=== PATIENT | male | born 1995 | race Two or more races ===

== ENCOUNTER 2017-10-25 17:42 | Emergency (ER) | payer MEDICAID, OTHER ==
[~2017-10-25] VITALS: Ht 172.7 cm; Wt 61.2 kg
[2017-10-25 17:49] VITALS: BP 123/69
[2017-10-25] MEDS ORDERED: cefTRIAXone SOD 1,000 MG VL IM ONE (22:00)
== END 2017-10-25 22:37 | disposition home or self-care (01) ==
LOC: ER 17:46
DX: J02.0 Streptococcal pharyngitis (principal)
CPT/HCPCS: 96372; 99283; J0696

== ENCOUNTER 2021-07-28 14:39 | Inpatient (IN) | payer MEDICAID ==
[~2021-07-28] VITALS: Ht 172.7 cm; Wt 72.1 kg
[2021-07-28] MEDS ORDERED: DEXTROSE (50%) 50ML SYRG IV PRN (15:15)
[2021-07-28] MEDS ORDERED: InsuLIN R (HUMAN) 100 UNITS in SODIUM CHL 0.9% 99 ML IV SCH (15:15)
[2021-07-28] MEDS ORDERED: SODIUM CHLORIDE 0.9% 1,000 ML IV ONE ×2 (15:15)
[2021-07-28 16:17] LABS: Basophils # (auto) 0 10 ^3/uL (0-0.2); Eosinophils # (auto) 0 10 ^3/uL (0-0.8); Mean Corpuscular Hemoglobin 30.4 pg (28.0-32.0); Mean Corpuscular Hgb Conc. 33.5 g/dL (32.0-36.0); Monocytes # (auto) 0.6 10 ^3/uL (0-1.3); Neutrophils # (auto) 5.6 10 ^3/uL (1.6-8.6); Nucleated Red Blood Cells % 0.1 %
[2021-07-28 16:18] LABS: Basophils % (auto) 0.2 % (0.0-2.0); Eosinophils % (auto) 0.3 % (0.0-7.0); Hematocrit 53.9 % (41.0-53.0); Lymphocytes # (auto) 1.3 10 ^3/uL (0.4-5.4); Lymphocytes % (auto) 16.9 % (10.0-50.0); Mean Corpuscular Volume 90.7 fL (80.0-100.0); Monocytes % (auto) 7.8 % (0.0-12.0); Neutrophils % (auto) 74.8 % (37.0-80.0); Red Blood Cells 5.94 10^6/uL (4.5-5.90); Red Cell Distribution Width 13.3 % (11.8-14.3); White Blood Cell 7.5 10^3/uL (4.4-10.8)
[2021-07-28 16:26] LABS: Albumin 3.8 g/dL (3.4-5.0); Calcium 9.2 mg/dL (8.5-10.1); INR 0.96 (0.9-1.15); Partial Thromboplastin Time 28.5 sec (23.6-33.0); Potassium 4.2 mmol/L (3.5-5.1)
[2021-07-28 16:30] LABS: BUN/Creatinine Ratio 7.9; Total Protein 8.5 g/dL (6.4-8.2)
[2021-07-28 17:12] LABS: Urine Bacteria FEW /hpf (None Seen); Urine Blood 1+ /uL (Negative); Urine Mucus FEW (None Seen); Urine Specific Gravity 1.031 (1.001-1.035); Urine WBC 2 /hpf (0 - 3)
[2021-07-28] MEDS: ACCU-CHEK COMFORT CURVE STRIP VI SCH ×5 (17:23→23:24)
[2021-07-28] MEDS ORDERED: D5W/SOD CHL 0.45%/KCL 20MEQ 1,000 ML IV SCH (18:45)
[2021-07-28] MEDS ORDERED: HYDROcodone-ACET 5/325MG TAB PO PRN (19:15)
[2021-07-28] MEDS ORDERED: ACETAMINOPHEN 500 MG TAB PO PRN (19:15)
[2021-07-28] MEDS ORDERED: ONDANSETRON HCL 4 MG/2 ML VIAL IV PRN (19:15)
[2021-07-28] MEDS ORDERED: NITROGLYCERIN 0.4 MG SL TAB SL PRN (19:15)
[2021-07-28] MEDS ORDERED: MORPHINE SULFATE INJECTION 2 MG/ML SYRG IV PRN ×2 (19:15)
[2021-07-28] MEDS ORDERED: INSULIN LANTUS (GLARGINE) 1 /0.01ml (100units/ml) SC SCH ×2 (19:45→20:00)
[2021-07-29] MEDS: ACCU-CHEK COMFORT CURVE STRIP VI SCH ×5 (00:10→13:04)
[2021-07-29 00:15] LABS: Potassium 3.5 mmol/L (3.5-5.1)
[2021-07-29] MEDS ORDERED: DEXTROSE (50%) 50ML SYRG IV PRN (01:45)
[2021-07-29] MEDS: InsuLIN REG 1unit/0.01ml Soln (100units/ml) SC SCH ×3 (03:51→13:30)
[2021-07-29 04:25] VITALS: BP 102/59
[2021-07-29] MEDS ORDERED: INSU100I26 SC (05:43)
[2021-07-29] MEDS ORDERED: INSULIN LANTUS (GLARGINE) 1 /0.01ml (100units/ml) SC ONE (06:15)
[2021-07-29 08:25] VITALS: BP 126/61
[2021-07-29 09:00] VITALS: BP 126/61
[2021-07-29 09:20] LABS: Basophils # (auto) 0 10 ^3/uL (0-0.2); Basophils % (auto) 0.7 % (0.0-2.0); Eosinophils # (auto) 0.2 10 ^3/uL (0-0.8); Eosinophils % (auto) 3.2 % (0.0-7.0); Hematocrit 40.9 % (41.0-53.0); Hemoglobin 13.9 g/dL (13.5-17.5); Lymphocytes # (auto) 1.8 10 ^3/uL (0.4-5.4); Lymphocytes % (auto) 32.7 % (10.0-50.0); Mean Corpuscular Hemoglobin 30.3 pg (28.0-32.0); Monocytes # (auto) 0.6 10 ^3/uL (0-1.3); Monocytes % (auto) 10.9 % (0.0-12.0); Neutrophils # (auto) 2.8 10 ^3/uL (1.6-8.6); Neutrophils % (auto) 52.5 % (37.0-80.0); Nucleated Red Blood Cells % 0.6 %; Red Blood Cells 4.59 10^6/uL (4.5-5.90); White Blood Cell 5.4 10^3/uL (4.4-10.8)
[2021-07-29 09:41] LABS: Albumin 2.7 g/dL (3.4-5.0); Magnesium 2.4 mg/dL (1.6-2.6); Potassium 3.7 mmol/L (3.5-5.1)
[2021-07-29 09:54] LABS: Bilirubin, Total 0.9 mg/dL (0.2-1.0); Phosphorus 2.3 mg/dL (2.5-4.90); Total Protein 5.9 g/dL (6.4-8.2)
[2021-07-29 13:00] VITALS: BP 116/56
[2021-07-29 14:15] LABS: BUN/Creatinine Ratio 7.1
[2021-07-29 14:47] LABS: BUN/Creatinine Ratio 10.4
[2021-07-29 15:27] VITALS: BP 116/56
== END 2021-07-29 17:46 | disposition home or self-care (01) | DRG 420 ==
LOC: ER 14:39 → TELE 19:10 → TELE-CENTR 07-29 03:28 → CENTRAL 07-29 06:20
PROVIDERS: ADMIT Nurse Practitioner Acute Care; ATTEND Internal Medicine
DX: E11.10 Type 2 diabetes mellitus with ketoacidosis without coma (principal); N17.9 Acute kidney failure, unspecified; E86.0 Dehydration; Z20.822 Contact with and (suspected) exposure to COVID-19
CPT/HCPCS: 36415; 36600; 71045; 80048; 80053; 81001; 82010; 82805; 82962; 83036; 83735; 84100; 85025; 85610; 85730; 87426; 96361; 96365; 96372; G0378; J1815

== ENCOUNTER 2021-11-20 19:36 | Inpatient (IN) | payer MEDICAID ==
[~2021-11-20] VITALS: Ht 172.7 cm; Wt 86.0 kg
[~2021-11-20 19:36] MED LIST: INSU100I26 SC
[2021-11-20] MEDS ORDERED: LACTATED RINGER'S 2,000 ML IV ONE (20:00)
[2021-11-20 20:35] LABS: Basophils # (auto) 0 10 ^3/uL (0-0.2); Basophils % (auto) 0.2 % (0.0-2.0); Eosinophils # (auto) 0 10 ^3/uL (0-0.8); Hematocrit 50.5 % (41.0-53.0); Hemoglobin 16.8 g/dL (13.5-17.5); Lymphocytes # (auto) 1.1 10 ^3/uL (0.4-5.4); Mean Corpuscular Hemoglobin 30.4 pg (28.0-32.0); Mean Corpuscular Hgb Conc. 33.3 g/dL (32.0-36.0); Mean Corpuscular Volume 91.5 fL (80.0-100.0); Monocytes # (auto) 0.7 10 ^3/uL (0-1.3); Neutrophils # (auto) 6.9 10 ^3/uL (1.6-8.6); Neutrophils % (auto) 78.8 % (37.0-80.0); Nucleated Red Blood Cells % 0.1 %; Red Blood Cells 5.53 10^6/uL (4.5-5.90); Red Cell Distribution Width 13.2 % (11.8-14.3); White Blood Cell 8.8 10^3/uL (4.4-10.8)
[2021-11-20 20:55] LABS: Albumin 3.8 g/dL (3.4-5.0); Calcium 9.4 mg/dL (8.5-10.1); Magnesium 2.2 mg/dL (1.6-2.6); Potassium 4.6 mmol/L (3.5-5.1)
[2021-11-20 20:58] LABS: Lactic Acid w/Reflex 2.4 mmol/L (0.4-2.0)
[2021-11-20 21:05] LABS: BUN/Creatinine Ratio 8.6; Bilirubin, Total 0.7 mg/dL (0.2-1.0); Total Protein 8.7 g/dL (6.4-8.2)
[2021-11-20] MEDS ORDERED: InsuLIN REG 1unit/0.01ml Soln (100units/ml) IV ONE (21:30)
[2021-11-21] MEDS ORDERED: ACETAMINOPHEN 325 MG TAB PO ONE
[2021-11-21 02:41] LABS: Albumin 2.9 g/dL (3.4-5.0); BUN/Creatinine Ratio 10.3; Calcium 8.3 mg/dL (8.5-10.1)
[2021-11-21 02:45] LABS: Bilirubin, Total 0.5 mg/dL (0.2-1.0); Total Protein 6.5 g/dL (6.4-8.2)
[2021-11-21] MEDS ORDERED: DEXTROSE (50%) 50ML SYRG IV PRN ×2 (05:30→10:30)
[2021-11-21] MEDS ORDERED: INSULIN LANTUS (GLARGINE) 1 /0.01ml (100units/ml) SC ONE ×2 (05:30→10:30)
[2021-11-21] MEDS ORDERED: InsuLIN REG 1unit/0.01ml Soln (100units/ml) ONE (05:31)
[2021-11-21] MEDS: InsuLIN R (HUMAN) 100 UNITS in SODIUM CHL 0.9% 99 ML IV SCH ×4 (05:38→10:18)
[2021-11-21 05:40] LABS: Albumin 2.7 g/dL (3.4-5.0); BUN/Creatinine Ratio 9.4; Calcium 7.5 mg/dL (8.5-10.1); Potassium 4.4 mmol/L (3.5-5.1)
[2021-11-21 05:43] LABS: Bilirubin, Total 0.5 mg/dL (0.2-1.0); Total Protein 6.2 g/dL (6.4-8.2)
[2021-11-21 05:45] LABS: Magnesium 1.7 mg/dL (1.6-2.6); Phosphorus 3.5 mg/dL (2.5-4.90)
[2021-11-21 06:08] LABS: Urine Bacteria NONE SEEN /hpf (None Seen); Urine Blood 2+ /uL (Negative); Urine Hyaline Cast MANY /lpf (0 - 2); Urine Mucus FEW (None Seen); Urine Specific Gravity 1.028 (1.001-1.035); Urine WBC 2 /hpf (0 - 3)
[2021-11-21] MEDS: ACCU-CHEK COMFORT CURVE STRIP VI SCH ×7 (06:24→20:17)
[2021-11-21 08:04] LABS: Basophils # (auto) 0 10 ^3/uL (0-0.2); Basophils % (auto) 0.2 % (0.0-2.0); Eosinophils # (auto) 0 10 ^3/uL (0-0.8); Eosinophils % (auto) 0.2 % (0.0-7.0); Hematocrit 42.1 % (41.0-53.0); Lymphocytes # (auto) 1.2 10 ^3/uL (0.4-5.4); Lymphocytes % (auto) 16.4 % (10.0-50.0); Mean Corpuscular Hemoglobin 30.8 pg (28.0-32.0); Mean Corpuscular Hgb Conc. 33.2 g/dL (32.0-36.0); Mean Corpuscular Volume 92.7 fL (80.0-100.0); Monocytes # (auto) 0.8 10 ^3/uL (0-1.3); Monocytes % (auto) 11.1 % (0.0-12.0); Neutrophils # (auto) 5.4 10 ^3/uL (1.6-8.6); Neutrophils % (auto) 72.1 % (37.0-80.0); Nucleated Red Blood Cells % 0.2 %; Red Blood Cells 4.55 10^6/uL (4.5-5.90); Red Cell Distribution Width 13.3 % (11.8-14.3); White Blood Cell 7.5 10^3/uL (4.4-10.8)
[2021-11-21] MEDS ORDERED: SODIUM CHLORIDE 0.9% 1,000 ML IV SCH ×2 (09:30→11:30)
[2021-11-21] MEDS ORDERED: HYDROcodone-ACET 5/325MG TAB PO PRN (10:15)
[2021-11-21] MEDS ORDERED: NITROGLYCERIN 0.4 MG SL TAB SL PRN (10:15)
[2021-11-21] MEDS ORDERED: DOCUSATE SOD 100 MG CAP PO PRN (10:15)
[2021-11-21] MEDS ORDERED: ONDANSETRON HCL 4 MG/2 ML VIAL IV PRN (10:15)
[2021-11-21] MEDS ORDERED: ACETAMINOPHEN 325 MG TAB PO PRN ×2 (10:15→17:15)
[2021-11-21] MEDS: SODIUM CHLORIDE 0.9% 1,000 ML IV SCH ×3 (10:15→20:17)
[2021-11-21] MEDS ORDERED: MORPHINE SULFATE INJ 2 MG/ml SYRG IV PRN ×2 (10:15)
[2021-11-21 11:23] LABS: Albumin 2.8 g/dL (3.4-5.0); BUN/Creatinine Ratio 7.1; Calcium 7.8 mg/dL (8.5-10.1); Potassium 3.9 mmol/L (3.5-5.1)
[2021-11-21 11:26] LABS: Bilirubin, Total 0.5 mg/dL (0.2-1.0); Total Protein 6.6 g/dL (6.4-8.2)
[2021-11-21 12:20] VITALS: BP 133/79
[2021-11-21] MEDS: InsuLIN REG 1unit/0.01ml Soln (100units/ml) SC SCH ×3 (12:43→20:16)
[2021-11-21] MEDS ORDERED: INSU1INJ19 SC (13:02)
[2021-11-21] MEDS ORDERED: PHEN1CAP74 PO (13:02)
[2021-11-21] MEDS ORDERED: AZITHROMYCIN 500MG/ 250ML 250 ML IV SCH (14:30)
[2021-11-21] MEDS ORDERED: PROMETHAZINE W/CODEINE 5 ML ORAL SYRUP PO PRN (14:30)
[2021-11-21 16:45] VITALS: BP 132/74
[2021-11-21 19:05] LABS: BUN/Creatinine Ratio 5.2; Calcium 8.2 mg/dL (8.5-10.1); Potassium 3.3 mmol/L (3.5-5.1)
[2021-11-21] MEDS: OSELTAMIVIR 75 MG CAP PO SCH (21:44)
[2021-11-21] MEDS: ASCORBIC ACID 500 MG TAB PO SCH (21:44)
[2021-11-21 22:00] VITALS: BP 134/73
[2021-11-21] MEDS ORDERED: INSULIN LANTUS (GLARGINE) 1 /0.01ml (100units/ml) SC SCH (22:00)
[2021-11-22 00:03] LABS: BUN/Creatinine Ratio 7.4; Calcium 7.9 mg/dL (8.5-10.1); Potassium 3.3 mmol/L (3.5-5.1)
[2021-11-22] MEDS: ACCU-CHEK COMFORT CURVE STRIP VI SCH ×6 (00:04→20:28)
[2021-11-22] MEDS: InsuLIN REG 1unit/0.01ml Soln (100units/ml) SC SCH ×6 (04:00→20:30)
[2021-11-22] MEDS: SODIUM CHLORIDE 0.9% 1,000 ML IV SCH ×3 (04:27→18:31)
[2021-11-22 05:00] VITALS: BP 109/68
[2021-11-22 06:24] LABS: Basophils # (auto) 0 10 ^3/uL (0-0.2); Basophils % (auto) 0.3 % (0.0-2.0); Eosinophils # (auto) 0 10 ^3/uL (0-0.8); Eosinophils % (auto) 0.4 % (0.0-7.0); Hematocrit 38.6 % (41.0-53.0); Hemoglobin 13.1 g/dL (13.5-17.5); Lymphocytes # (auto) 1.4 10 ^3/uL (0.4-5.4); Lymphocytes % (auto) 28.3 % (10.0-50.0); Mean Corpuscular Hemoglobin 30.2 pg (28.0-32.0); Mean Corpuscular Volume 88.7 fL (80.0-100.0); Monocytes # (auto) 0.6 10 ^3/uL (0-1.3); Monocytes % (auto) 12.1 % (0.0-12.0); Neutrophils # (auto) 2.8 10 ^3/uL (1.6-8.6); Neutrophils % (auto) 58.9 % (37.0-80.0); Nucleated Red Blood Cells % 0.1 %; Red Blood Cells 4.36 10^6/uL (4.5-5.90); Red Cell Distribution Width 12.9 % (11.8-14.3); White Blood Cell 4.8 10^3/uL (4.4-10.8)
[2021-11-22 06:52] LABS: BUN/Creatinine Ratio 7.1
[2021-11-22 06:53] LABS: Albumin 2.5 g/dL (3.4-5.0); Bilirubin, Total 0.4 mg/dL (0.2-1.0); Total Protein 6.1 g/dL (6.4-8.2)
[2021-11-22 06:54] LABS: Potassium 2.8 mmol/L (3.5-5.1)
[2021-11-22] MEDS ORDERED: POTASSIUM CHL 20 Meq TABLET PO ONE (07:15)
[2021-11-22 08:00] VITALS: BP 113/70
[2021-11-22] MEDS ORDERED: POTASSIUM CHL 20 Meq TABLET PO SCH ×2 (08:30)
[2021-11-22] MEDS: MULTIPLE VITAMIN TAB PO SCH (09:28)
[2021-11-22] MEDS: ZINC SULFATE 220mg CAP or TAB PO SCH (09:28)
[2021-11-22] MEDS: OSELTAMIVIR 75 MG CAP PO SCH ×2 (09:28→21:44)
[2021-11-22] MEDS: ASCORBIC ACID 500 MG TAB PO SCH ×2 (09:35→21:44)
[2021-11-22] MEDS ORDERED: INSULIN LANTUS (GLARGINE) 1 /0.01ml (100units/ml) SC SCH (10:00)
[2021-11-22 12:00] VITALS: BP 129/81
[2021-11-22] MEDS ORDERED: POTASSIUM EFFERVESENT TAB 25 MEQ PO ONE (12:15)
[2021-11-22 16:00] VITALS: BP 115/71
[2021-11-22 22:00] VITALS: BP 118/75
[2021-11-23] MEDS: ACCU-CHEK COMFORT CURVE STRIP VI SCH ×4 (00:19→12:52)
[2021-11-23] MEDS: InsuLIN REG 1unit/0.01ml Soln (100units/ml) SC SCH ×4 (00:21→12:53)
[2021-11-23] MEDS: SODIUM CHLORIDE 0.9% 1,000 ML IV SCH ×3 (00:25→15:35)
[2021-11-23 05:00] VITALS: BP 100/62
[2021-11-23 07:27] LABS: Potassium 3.2 mmol/L (3.5-5.1)
[2021-11-23 07:32] LABS: Albumin 2.4 g/dL (3.4-5.0); BUN/Creatinine Ratio 9.3; Calcium 8.2 mg/dL (8.5-10.1)
[2021-11-23 07:43] LABS: Bilirubin, Total 0.5 mg/dL (0.2-1.0); Total Protein 5.9 g/dL (6.4-8.2)
[2021-11-23] MEDS: MULTIPLE VITAMIN TAB PO SCH (08:32)
[2021-11-23] MEDS: ASCORBIC ACID 500 MG TAB PO SCH (08:32)
[2021-11-23] MEDS: ZINC SULFATE 220mg CAP or TAB PO SCH (08:32)
[2021-11-23 09:00] VITALS: BP 109/68
[2021-11-23] MEDS: OSELTAMIVIR 75 MG CAP PO SCH (10:00)
[2021-11-23] MEDS ORDERED: POTASSIUM CHL 20 Meq TABLET PO ONE (10:00)
[2021-11-23] MEDS ORDERED: TAMIFLU PO (12:00)
[2021-11-23 13:00] VITALS: BP 122/83
== END 2021-11-23 15:50 | disposition home or self-care (01) | DRG 420 ==
LOC: ER 19:36 → TELE 11-21 10:13 → TELE-CENTR 11-21 12:33
PROVIDERS: ADMIT Internal Medicine; ATTEND Internal Medicine
DX: E11.65 Type 2 diabetes mellitus with hyperglycemia (principal); N17.9 Acute kidney failure, unspecified; J10.1 Influenza due to other identified influenza virus with other respiratory manifestations; Z20.822 Contact with and (suspected) exposure to COVID-19; Z82.0 Family history of epilepsy and other diseases of the nervous system; Z83.3 Family history of diabetes mellitus; Z79.4 Long term (current) use of insulin
CPT/HCPCS: 36415; 36600; 71045; 80048; 80053; 81001; 82010; 82805; 82962; 83036; 83605; 83690; 83735; 83880; 83930; 84100; 84484; 85025; 87070; 87501; 87804; 87880; 93005; 96361; 96365; 96372; 96375; G0378; J1815; J2405

== ENCOUNTER 2023-06-15 13:40 | Emergency (ER) | payer MEDICAID ==
[~2023-06-15] VITALS: Ht 172.7 cm; Wt 71.6 kg
[~2023-06-15 13:40] MED LIST changes: +INSU1INJ19 SC; +PHEN1CAP74 PO; +TAMIFLU PO
[2023-06-15 13:56] VITALS: BP 107/77; PULSE 125; RESP 18; O2SAT 98
[2023-06-15] MEDS ORDERED: SODIUM CHLORIDE 0.9% 1,000 ML IV ONE (14:15)
[2023-06-15 14:48] LABS: Basophils # (auto) 0 10 ^3/uL (0-0.2); Basophils % (auto) 0.1 % (0.0-2.0); Eosinophils # (auto) 0 10 ^3/uL (0-0.8); Eosinophils % (auto) 0.2 % (0.0-7.0); Hematocrit 50.1 % (41.0-53.0); Hemoglobin 16.9 g/dL (13.5-17.5); Lymphocytes # (auto) 0.9 10 ^3/uL (0.4-5.4); Lymphocytes % (auto) 9.8 % (10.0-50.0); Mean Corpuscular Hemoglobin 30.9 pg (28.0-32.0); Mean Corpuscular Hgb Conc. 33.7 g/dL (32.0-36.0); Mean Corpuscular Volume 91.5 fL (80.0-100.0); Monocytes # (auto) 0.5 10 ^3/uL (0-1.3); Monocytes % (auto) 5.7 % (0.0-12.0); Neutrophils # (auto) 8.1 10 ^3/uL (1.6-8.6); Neutrophils % (auto) 84.2 % (37.0-80.0); Red Blood Cells 5.48 10^6/uL (4.5-5.90); Red Cell Distribution Width 13.8 % (11.8-14.3); White Blood Cell 9.6 10^3/uL (4.4-10.8)
[2023-06-15 14:58] LABS: Alanine Aminotransferase 39 U/L (7-40); Albumin 4.9 g/dL (3.2-4.8); Alkaline Phosphatase 194 U/L (46-116); Anion Gap 17 (5-15); Aspartate Aminotransferase 33 U/L (13-40); BUN/Creatinine Ratio 8.5 (10.0-20.0); Blood Urea Nitrogen 11 mg/dL (9-23); Calcium 10.1 mg/dL (8.5-10.1); Carbon Dioxide 21 mmol/L (20-30); Chloride 102 mmol/L (98-107); Glucose 190 mg/dL (74-106); Sodium 140 mmol/L (136-145)
[2023-06-15 14:58] LABS: Urine Bacteria FEW /hpf (None Seen); Urine Blood 2+ /uL (Negative); Urine Clarity Clear (Clear); Urine Color Yellow (Yellow); Urine Hyaline Cast FEW /lpf (0 - 2); Urine Mucus FEW (None Seen); Urine Protein, UAD TRACE (Negative); Urine Specific Gravity 1.032 (1.001-1.035); Urine WBC 1 /hpf (0 - 3); Urine pH 5.5 (5.0-8.0)
[2023-06-15 14:59] LABS: Bilirubin, Total 1.2 mg/dL (0.2-1.0); Total Protein 8.2 g/dL (5.7-8.2)
== END 2023-06-15 21:09 | disposition home or self-care (01) ==
LOC: ER 13:40
DX: E11.65 Type 2 diabetes mellitus with hyperglycemia (principal); Z79.4 Long term (current) use of insulin; Z79.899 Other long term (current) drug therapy
CPT/HCPCS: 36415; 71045; 80053; 81001; 82962; 83036; 85025